=== PATIENT | male | born 1940 | race Caucasian/White ===

== ENCOUNTER 2018-01-21 16:06 | Inpatient (IN) | payer OTHER ==
[2018-01-21] MEDS ORDERED: ONDANSETRON DISINTEGRATING 4 MG TAB PO PRN (17:24)
[2018-01-21] MEDS ORDERED: ONDANSETRON 4 MG/2 ML VIAL IVP PRN (17:24)
[2018-01-21] MEDS ORDERED: PROMETHAZINE HCL 25 MG/ML INJ IVP PRN (17:24)
[2018-01-21] MEDS ORDERED: HYDROmorphONE/DILAUDID 1 MG/ML INJ IVP PRN (17:24)
[2018-01-21] MEDS ORDERED: oxyCODONE IR 5 MG TAB PO PRN (17:24)
[2018-01-21] MEDS: HYDROCODONE/APAP 5/325 TAB PO PRN (18:47)
[2018-01-21 20:57] LABS: PLATELET COUNT 142 10^3/uL (150-400)
[2018-01-21] MEDS ORDERED: NS 500 ML IV ONE (21:30)
[2018-01-21] MEDS: NS 1,000 ML IV SCH (21:56)
[2018-01-21] MEDS ORDERED: NITROGLYCERIN 0.4 MG BTL SL PRN (22:48)
--- NOTE | 2018-01-21 23:04 | PDGENHP ---
History and Physical - Chief Complaint generalized weakness - History of Present Illness Patient is a 77 yo M patient of Dr. Romeo for recently diagnosed rectal adenocarcinoma. Patient sent over as a direct admit for concerns of possible failure to thrive with increased weakness, difficulty eating and increased confusion. Patient has also been incontinent of stool and oncology has been attempting to obtain an MRI for further evaluation however he has been unable to obtain due to concern over a possible metal stent in his leg. The majority of this history is obtained from and daughter present at bedside as patient though awake and alert is somnolent and not very interactive. Per family , 2 days ago he was able to walk with a walker and was interacting much more normally. He has been complaining of pain in his tailbone but really no other new complaints. He has not had fever or chills, He has not had any changes in his urination other than the urine has appeared dark. He has had a chronic indwelling hernandez catheter since September due to urinary retention, they have been followed up by urology. He has had the catheter changed as scheduled, most recently one week ago. He has been so weak he has had trouble getting out of bed recently. He has recently moved to [place] and has had the majority of his care in [place], he has a PCP in [place] and has had the majority of his care through [facility] in [place]. History Information - Allergies/Home Medication List Allergies/Adverse Reactions: Unable to Assess Allergy (Unverified 01/21/18 17:24) Home Medications: ARIPiprazole [Abilify 5 mg (*)] 2.5 mg PO HS 01/21/18 [Last Taken 01/21/18 17:00 ] Atorvastatin Calcium [Lipitor 40 mg (*)] 40 mg PO HS 01/21/18 [Last Taken 17:00] Clopidogrel Bisulfate [Plavix (*)] 75 mg PO DAILY 01/21/18 [Last Taken 01/21/18] Divalproex ER [Depakote ER 500 MG (*)] 1,500 mg PO HS 01/21/18 [Last Taken 01/21 17:00] Hydrocodone/Acetaminophen [[place] 5/325 (*)] 1 tab PO Q4H PRN 01/21/18 [Last Taken 01/20/18] Levothyroxine [Synthroid 75 mcg (*)] 75 mcg PO DAILY06 01/21/18 [Last Taken 07/06] Nitroglycerin [Nitrostat 0.4 mg (*)] 0.4 mg SL Q5M PRN 01/21/18 [Last Taken Unknown] I have personally reviewed and updated: family history, medical history, social history, surgical history - Past Medical History coronary artery disease (stents x 2), cancer (rectal adenocarincoma), CVA, psychiatric history (severe depression in the past--had a 70 day stay in [facility] [place]) Additional medical history: PVD with stent - Surgical History Reports: coronary stent Additional surgical history: stent for pvd in leg - Family History Positive for: non-pertinent - Social History Smoking Status: Former smoker Alcohol Use: Rarely Drug Use: None Additional social history: , accompanied by and daughter Review of Systems Review of Systems: ROS: 10pt was reviewed & negative except for what was stated in HPI & below Physical Exam Physical Exam: Temp Pulse Resp BP Pulse Ox 36.4 C 49 L 16 83/51 L 93 01/21/18 20:55 01/21/18 20:55 01/21/18 20:55 01/21/18 21:48 01/21/18 20:55 Constitutional: appears nourished, not in pain, chronically ill appearing Eyes: PERRL, anicteric sclera Ears, Nose, Mouth, Throat: moist mucous membranes, hearing normal Cardiovascular: regular rate and rhythym, no murmur, rub, or gallop, edema Respiratory: no respiratory distress, no rales or rhonchi Gastrointestinal: normoactive bowel sounds, soft, non-tender abdomen Genitourinary: no bladder tenderness Skin: warm, normal color Musculoskeletal: full muscle strength Neurologic: AAOx3, other (somnolent, generalized weakness) Psychiatric: interacting appropriately Lab Data & Imaging Review 01/21/18 18:30 01/21/18 18:30 WBC 8.40 10^3/uL (3.80-9.50) 01/21/18 18:30 RBC 4.20 10^6/uL (4.40-6.38) L 01/21/18 18:30 Hgb 12.9 g/dL (13.7-17.5) L 01/21/18 18:30 Hct 39.0 % (40.0-51.0) L 01/21/18 18:30 MCV 92.9 fL (81.5-99.8) 01/21/18 18:30 MCH 30.7 pg (27.9-34.1) 01/21/18 18:30 MCHC 33.1 g/dL (32.4-36.7) 01/21/18 18:30 RDW 16.0 % (11.5-15.2) H 01/21/18 18:30 Plt Count 142 10^3/uL (150-400) L 01/21/18 18:30 MPV 10.2 fL (8.7-11.7) 01/21/18 18:30 Neut % (Auto) 64.7 % (39.3-74.2) 01/21/18 18:30 Lymph % (Auto) 22.0 % (15.0-45.0) 01/21/18 18:30 Baldwin % (Auto) 11.8 % (4.5-13.0) 01/21/18 18:30 Eos % (Auto) 0.8 % (0.6-7.6) 01/21/18 18:30 Baso % (Auto) 0.5 % (0.3-1.7) 01/21/18 18:30 Nucleat RBC Rel Count 0.0 % (0.0-0.2) 01/21/18 18:30 Absolute Neuts (auto) 5.43 10^3/uL (1.70-6.50) 01/21/18 18:30 Absolute Lymphs (auto) 1.85 10^3/uL (1.00-3.00) 01/21/18 18:30 Absolute Monos (auto) 0.99 10^3/uL (0.30-0.80) H 01/21/18 18:30 Absolute Eos (auto) 0.07 10^3/uL (0.03-0.40) 01/21/18 18:30 Absolute Basos (auto) 0.04 10^3/uL (0.02-0.10) 01/21/18 18:30 Absolute Nucleated RBC 0.00 10^3/uL (0-0.01) 01/21/18 18:30 Immature Gran % 0.2 % (0.0-1.1) 01/21/18 18:30 Immature Gran # 0.02 10^3/uL (0.00-0.10) 01/21/18 18:30 Sodium 135 mEq/L (135-145) 01/21/18 18:30 Potassium 4.5 mEq/L (3.3-5.0) 01/21/18 18:30 Chloride 99 mEq/L (97-110) 01/21/18 18:30 Carbon Dioxide 28 mEq/l (22-31) 01/21/18 18:30 Anion Gap 8 mEq/L (8-16) 01/21/18 18:30 BUN 20 mg/dL (7-23) 01/21/18 18:30 Creatinine 0.8 mg/dL (0.7-1.3) 01/21/18 18:30 Estimated GFR > 60 01/21/18 18:30 Glucose 117 mg/dL (70-100) H 01/21/18 18:30 Calcium 9.3 mg/dL (8.5-10.4) 01/21/18 18:30 Phosphorus 4.2 mg/dL (2.5-4.5) 01/21/18 18:30 Magnesium 1.9 mg/dL (1.6-2.3) 01/21/18 18:30 Total Bilirubin 0.6 mg/dL (0.1-1.4) 01/21/18 18:30 AST 39 IU/L (17-59) 01/21/18 18:30 ALT 22 IU/L (21-72) 01/21/18 18:30 Alkaline Phosphatase 76 IU/L (38-126) 01/21/18 18:30 Troponin I < 0.012 ng/mL (0.000-0.034) 01/21/18 18:30 Total Protein 6.3 g/dL (6.3-8.2) 01/21/18 18:30 Albumin 3.2 g/dL (3.5-5.0) L 01/21/18 18:30 TSH 0.103 uIU/mL (0.465-4.680) L 01/21/18 18:30 Visualized and Interpreted Chest x-ray results: Yes Chest X-Ray results: no infiltrate Assessment & Plan Assessment: Rectal adenocarcinoma (Acute) 77 yo M with hx of CAD, CVA and depression as well as recently diagnosed rectal adenocarcinoma admitted with increased weakness/somnolence and hypotension # hypotension: persistent and not very fluid responsive, trop negative, ecg ordered and pending, does have associated bradycardia. Nothing clearly suggestive of infectious process but given underlying malignancy could be manifesting differently due to immune suppression. Will check procalcitonin, UA and lactate. Will get cortisol level in am. Adrenal insufficiency a consideration and will do cortisol stim test in am. Will give a one time dose of dexamthasone in case adrenal crisis contributing to presentation. # weakness/somnolence: as above, in the setting of new dx of rectal adenocarcinoma however more rapid decline concerning for a secondary etiology for this. W/u for occult infection, will w/u possible cardiac etiology as well as adrenal insufficiency. PT/OT to be involved. # bradycardia: ecg pending, will monitor on tele, in ER appeared to be sinus david on personal review of monitor # rectal adenocarcinoma: sent in for direct admission by oncology, they will eval in the am and give further recommendations regarding treatment and w/u # hx of CAD: s/p stents x 2, no chest pain but given multiple vague sxs will w/ u for possible anginal equivalent with trops, echo in am, tele monitoring # hx of CVA: without any current focal neurologic deficits appreciated # acute encephalopathy: patient noted to be somnolent and answering questions slowly and largely with only yes/no answers, is answering overall appropriately when pressed, per family this has been present over last couple of days as well , does seem more c/w toxic metabolic encephalopathy rather than an acute neurologic issue currently # hx of depression: apparently severe in the past requiring prolonged hospitalization, will monitor, difficult to assess currently # IP status, will require > 48 hours stay for eval/mgmt of above # DNR--reviewed with and daughter Patient new to my care. Old records reviewed and summarized as above. Care plan reviewed with oncology. Further hx obtained from /daughter at bedside. Records from prior hospitalizations and PCP office requested.
[2018-01-21] MEDS ORDERED: NS 1,000 ML IV ONE (23:05)
[2018-01-21] MEDS ORDERED: DEXAMETHASONE 4 MG/ML VIAL IVP ONE (23:27)
[2018-01-22] MEDS: NS 1,000 ML IV SCH ×2 (00:41→08:37)
[2018-01-22] MEDS: LEVOTHYROXINE 75 MCG TAB PO SCH (05:13)
[2018-01-22] MEDS ORDERED: COSYNTROPIN 0.25 MG/2 ML SYRINGE IVP ONE (06:00)
--- NOTE | 2018-01-22 09:35 | PDMN ---
Medical Necessity Medical necessity: Pt meets inpt criteria per MD order and MCG M-510, Supraventricular Arrhythmias. 77 y/o w/recent diagnosis of rectal adenocarcinoma admitted w/increased weakness, somnolence/confusion, persistent hypotension, and bradycardia w/most recent HR 42. Anticipate>2MN for further eval/management including cortisol stim test in AM, workup for infection, cardiology etiology as well as adrenal insuff, blood cultures pending, oncology consult.
[2018-01-22] MEDS: CLOPIDOGREL BISULFATE 75 MG TAB PO SCH (11:39)
--- NOTE | 2018-01-22 11:56 | ECHO ---
[email or web address] [address] [address] Main: [phone] Fax: Transthoracic Echocardiogram Name: RAFAT OLIVAREZ MR#: [id number] Study Date: 01/22/2018 Study Time: 09:07 AM Date of : 1940 Age: 77 year(s) Height: 165.1 cm (65 in.) Weight: 76.2 kg (168 lb.) BSA: 1.84 m2 Gender: Male Examination: Echo Indication: Hypotension, Rectal CA, Weakness Image Quality: Contrast: Requested by: Harika Lu BP: 121 mmHg/70 mmHg Heart Rate: Rhythm: Normal sinus rhythm with ectopy Indication: Hypotension, Rectal CA, Weakness 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 No LV hypertrophy. Normal global systolic LV function. EF is 77 %. Grade 2 diastolic dysfunction (pseudonormalized LV filling pattern). The left atrium is mildly dilated. Mild mitral valve leaflet calcification is present. Trivial mitral valve regurgitation. Mild aortic cusp calcification is noted. Measurements: Chambers Valvular Assessment AV/MV Valvular Assessment TV/PV Normal Normal Normal Name Value Range Name Value Range Name Value Range Ao Ladi (MM): 3.2 cm (2.2 cm-3.7 AV Vmax: 1.41 m/s (1 m/s-1.7 PV Vmax: 0.79 m/s (0.6 m/s-0.9 cm) m/s) m/s) IVSd (2D): 0.8 cm (0.6 cm-1.1 AV maxP mmHg ( - ) PV PGmax: 2 mmHg ( - ) cm) AV meanP mmHg ( - ) LVDd (2D): 4.5 cm (4.2 cm-5.9 LVOT Vmax: 1.16 m/s (0.7 m/s-1.1 cm) m/s) LVDs (2D): 2.5 cm (2.1 cm-4 RUEL (Vmax): 2.6 cm2 ( - ) cm) RUEL (VTI): 2.9 cm ( - ) LVPWd (2D): 0.9 cm (0.6 cm-1 MV E Vmax: 1.10 m/s ( - ) cm) MV A Vmax: 0.83 m/s ( - ) LVOTd 2.0 cm 2.0 cm mm MV E/A: 1.33 ( - ) LVEF (2D): 77 (>=54 %) MV maxP mmHg ( - ) MV meanP mmHg ( - ) MVA (Vmax): 2.9 m/s ( - ) Continued Measurements: Patient: RAFAT OLIVAREZ Study Date: 01/22/2018 Page 1 of 2 09:07 AM Chambers Valvular Assessment AV/MV Name Value Name Value LADs Lon.6 cm MV E/E' Septal: 21.30 LA Area: 26.1 cm2 MV E/E' Lateral: 18.80 LA Volume: 70 ml MV VTI: 38.20 cm LA Volume Index: 38.0 ml/m2 TAPSE: 2.6 cm Findings: Left Ventricle: Normal size left ventricle. No LV hypertrophy. Normal global systolic LV function. EF is 77 %. No regional wall motion abnormality. Grade 2 diastolic dysfunction (pseudonormalized LV filling pattern). Right Ventricle: Normal size right ventricle. Normal RV function. Left Atrium: The left atrium is mildly dilated. Right Atrium: The right atrium is normal in size. Mitral Valve: Mild mitral valve leaflet calcification is present. Trivial mitral valve regurgitation. No mitral stenosis is present. Aortic Valve: Mild aortic cusp calcification is noted. There is no significant aortic valve regurgitation. No aortic valve stenosis is present. Tricuspid Valve: The tricuspid valve is normal in appearance and function. There is no tricuspid valve regurgitation. Pulmonic Valve: The pulmonic valve is normal in appearance and function. Aorta: The aorta is normal. Pericardium: No pericardial effusion. Exam Comments: The heart rate during the exam ranged from 38 bpm and increased into the mid 60 bpm range.. (No Signature Object) Patient: RAFAT OLIVAREZ Study Date: 01/22/2018 Page 2 of 2 09:07 AM [id number]
[2018-01-22] MEDS: HYDROCODONE/APAP 5/325 TAB PO PRN (12:54)
[2018-01-22 14:30] LABS: CREATINE KINASE 313 IU/L (0-224)
--- NOTE | 2018-01-22 16:02 | CPEKG ---
Test Reason : OPEN Blood Pressure : / mmHG Vent. Rate : 049 BPM Atrial Rate : 047 BPM P-R Int : 140 ms QRS Dur : 102 ms QT Int : 469 ms P-R-T Axes : 040 -18 -05 degrees QTc Int : 424 ms Sinus bradycardia Borderline left axis deviation Borderline T abnormalities, inferior leads Confirmed by Jie Conteh ([id number]) on 01/22/2018 4:02:20 PM Referred By: Confirmed By:Jie Conteh
--- NOTE | 2018-01-22 16:03 | ASMTCMCOM ---
CM Note CM Note Notes: Chart reviewed. Met with patient and his . He and his share with me that his status has been declining at home despite working with PT and OT through [facility]. His is tearful and it is my sense that being is caregiver has overwhelming caregiver burden for her. I asked is anyone has discussed palliative care, It was mentioned once but not clearly explored as his cancer diagnosis is still in process of being staged. He needs an MRI but due to him having a stent in his leg at a facility in [place], MRI is delayed until clarification regarding the type of stent can be made. He is also extremely bradycardic which may be an explanation for his severe deciine in physical status and inability to walk at home. Cardiology seeing this PM.CM to follow for needs. Plan: TBD Date Signed: 01/22/2018 04:03 PM Electronically Signed By:Seema Fatima RN
--- NOTE | 2018-01-22 16:11 | CPEKG ---
Test Reason : OPEN Blood Pressure : / mmHG Vent. Rate : 038 BPM Atrial Rate : 038 BPM P-R Int : 141 ms QRS Dur : 102 ms QT Int : 495 ms P-R-T Axes : 034 -08 -13 degrees QTc Int : 394 ms Sinus bradycardia Low voltage, extremity and precordial leads Confirmed by Jie Conteh ([id number]) on 01/22/2018 4:10:55 PM Referred By: Confirmed By:Jie Conteh
[2018-01-22] MEDS ORDERED: NS 500 ML IV ONE (16:46)
--- NOTE | 2018-01-22 17:33 | HOSPPROG ---
Hospitalist Progress Note Assessment/Plan: 77yo M recently diagnosed with rectal adenocarcinoma and h/o CAD presented from oncology clinic due to concerns for increasing weakness and confusion. Per family, he has had subacute physical and mental decline over period of months with acute change in last few days. #Acute encephalopathy with myoclonus: Most likely metabolic in nature. Alternatively, this could be catatonic depression but unlikely would have neurologic manifestations. Despite negative procalcitonin, will treat for UTI as have no other clear source. - Start IV ceftriaxone, follow urine culture - CT head - Depakote and ammonia level wnl - Attempted to call his psychiatrist to get more info on his psychiatric disease #Sinus bradycardia: No e/o AV block or coronary ischemia, not on briana blocking agents. Doubt this is main construction driver of his lethargic state. - Cardiology consulted - Move to PCU for closer monitoring overnight #Hypotension: Fluid responsive. Not correlated with encephalopathy and all other signs indicate he is perfusing ok. Does not have septic physiology. - Dustin stim normal - IVF prn #Rectal adenocarcinoma: - Oncology consulted. Has not had staging imaging done yet, defer to onc for this. #Depression: No recent med changes. - Continue depakote, abilify. Doses confirmed with patient/family. #Hypothyroidism - TSH very low but T4 and T3 wnl. Unlikely to be precipitating AMS. - Continue home thyroid replacement #H/o CAD: S/p PCI about a year ago. - Trops/ecg neg for ischemia, TTE ok - Continue clopidogrel, not on statin #H/o PAD: S/p stent in leg - Meds as above Diet: regular Code: DNR VTE ppx: LMWH Dispo: Remain inpatient for management of AMS with IV antibiotics. Unsafe for discharge to home. Subjective: Sleepy. Denies pain. No fevers. Got up and walked with therapy. Denies feeling depressed or anxious. Objective: Vital Signs Temp Pulse Resp BP Pulse Ox 36.4 C 38 L 16 88/45 L 94 01/22/18 15:34 01/22/18 15:34 01/22/18 15:34 01/22/18 15:34 01/22/18 15:34 Laboratory Results 01/21/18 18:30 01/21/18 18:30 01/21/18 01/22/18 01/23/18 05:59 05:59 05:59 Intake Total 350 1145 Output Total 950 550 Balance -600 595 - Physical Exam Constitutional: no apparent distress, appears nourished, not in pain Eyes: PERRL, anicteric sclera, EOMI Ears, Nose, Mouth, Throat: moist mucous membranes, hearing normal, ears appear normal, no oral mucosal ulcers Cardiovascular: pulses symmetric bilaterally, bradycardia, No systolic murmur, No JVD, No edema Respiratory: no respiratory distress, no rales or rhonchi, clear to auscultation Gastrointestinal: normoactive bowel sounds, soft, non-tender abdomen, no palpable masses Genitourinary: hernandez in urethra, other (normal rectal tone (performed by oncologist)) Skin: no rashes or abrasions, no fluctuance, no induration Musculoskeletal: full muscle strength, no muscle tenderness, normal joint ROM Neurologic: asterixes, CN II-XII Intact, other (alert and oriented, able to spell WORLD backwards, + myoclonus in upper and lower extremities, 5/5 strength in all muscle groups, sensation to light touch intact) Psychiatric: flat affect ICD10 Worksheet Patient Problems: Problems Problem Status Onset Rectal adenocarcinoma Acute
[2018-01-22] MEDS ORDERED: ATROPINE SULFATE 1 MG/10 ML SYR IVP PRN (19:33)
--- NOTE | 2018-01-22 19:55 | PDCONSULT ---
Corrosion Control Engineer Note: Patient is a 77-year-old male with a recent diagnosis of rectal adenocarcinoma admitted for generalized weakness and failure to thrive. Patient reports a 2-3-month history of generalized weakness and feelings of depression. He reports over the last several weeks or so he spends most of his time in bed or in a chair. He can walk but requires a walker which he started using recently. In addition he reports roughly 50 pound weight loss within the last year. He denies melena or hematochezia he feels each time that he has a bowel movement he has 2-3 bowel movements per day. He reports being incontinent of urine for 4-5 weeks however has a Goodwin catheter in place. Patient was seen by Dr. Tavarez on 01/06/2018. That note reports that patient had significant feelings of depression after 2 cardiac stents were placed roughly 1 year ago. Roughly elliptical. Blood. In October having difficulty urinating and required a catheter placed. Apparently was evidence of urinary stricture and at that time. Patient eventually started to get urology forward a worsening bowel habits hematochezia and fecal incontinence. A colonoscopy was performed with a low-lying mass which appeared biopsy showed moderately differentiated adenocarcinoma. Patient had a CT scan of the chest abdomen on 01/14/2018 which demonstrated an incompletely imaged complex cystic and fat-containing right retroperitoneal mass. MRI was not pursued initially due to concerns that this patient has a iliac stent. Review of systems: A complete 12 point review of systems was obtained and found to be negative unless indicated in the history of the present illness Past medical history: Coronary artery disease Severe depression with documented stay at inpatient psychiatry Past surgical history: Right total knee arthroplasty Left iliac vein stenting Social history: Patient is a [id number]-fzob smoking history he quit 40 years ago. Patient does report one drinks per day. 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 Family history: Patient reports he has a daughter who has Crohn's disease Medications and allergies reviewed in EMR Physical Examination General: no acute distress, non toxic appearing HEENT: PERRL, no scleral icterus or conjunctival pallor is appreciated Neck: supple without adenopathy Cardiovascular: bradycardic rate, normal rhythm without rubs thrills or gallops Chest: Clear to auscultation and percussion Abdomen: soft nontender, non distended without hepatosplenomegaly Rectal: normal rectal tone with some blood on the glove Extremities: warm and well perfused with 2+ radial and dorsalis pedis pulses, some scarring on the left leg Neurologic: CN II-XII intact, 5/5 dorsiflexion, plantarflexion lower extremities , able to lift legs off the bed, downgoing toes, able to walk with walker Labs reviewed Assessment and plan: Patient is a 77 year old male with recent diagnosis of rectal carcinoma admitted for generalized weakness and failure to thrive. #Generalized weakness Appears related to deconditioning likely due to severe depression. He has no focal weakness, no saddle anesthesia and normal rectal exam in regards to tone. -PT/OT evaluation -psychiatry consult #Rectal adenocarcinoma He has no evidence of distant metastatic disease based on CT chest and abdomen done 01/14/18. Has not had regional staging. Would see about MRI with his iliac stent and if cannot get an MRI would pursue endoscopic ultrasound. Raymundo Loyd
[2018-01-22] MEDS: DIVALPROEX ER 500 MG TAB PO SCH (20:43)
[2018-01-22] MEDS: ATORVASTATIN CALCIUM 40 MG TAB PO SCH (20:46)
[2018-01-22] MEDS: ARIPiprazole 5 MG TAB PO SCH (21:43)
--- NOTE | 2018-01-22 23:21 | GCON ---
REASON FOR CONSULTATION: We were asked by the hospitalist to comment on his bradycardia. CODE STATUS: His code designation is DNR. HISTORY OF PRESENT ILLNESS: The patient is a 77-year-old male with new diagnosis of rectal endo carcinoma. He has a history of coronary artery disease , having had a PCI 1 year ago. He was admitted from the oncology clinic on 06/2017, where he had presented to meet with the oncologist regarding his newly diagnosed rectal cancer. He has had increasing weakness and confusion, and there has been a noted decline in his mentation over the past few months. He has known psychiatric disease and is followed closely by his psychiatrist. He has depression and has been on Depakote and Abilify for treatment. Cardiology has been asked to weigh in on his sinus bradycardia. His EKGs have shown no evidence of an AV block or cardiac ischemia. He has not been on any type of briana-blocking agents. His heart rates do get down to 36-49 and do go up appropriately with ambulation. His blood pressure has been ranging 100/58 to 121/70. On admission, it was as low as 83/51. He does have history of coronary artery disease with PCI placed 1 year ago. He has continued on clopidogrel troches. An EKG on admission was negative for ischemia. He additionally has a history of peripheral vascular disease and years ago had a stent placed in the leg. He did have a positive UA and is on IV antibiotics. At time of my visit, he was willing to answer questions. However, becomes very somnolent and weak. There are plans by the hospitalist to get a head CT to evaluate further and rule out metastasis. His is at bedside and has participated in this interview. He does not appear to be in distress. spa supervisor continues to show heart rates between 36 and 49. The plan is to transfer him to the PCU area where he can be monitored closely. REVIEW OF SYSTEM: 10-point review of systems was negative with the exception of that mentioned in the HPI. MEDICATION: Please see complete list of medications on admission. MEDICAL HISTORY: Coronary artery disease with stent placement, CVA, psychiatric history with severe depression requiring a hospital stay at the [facility] for 2 months. He does have peripheral vascular disease and has had a stent placed in his leg. SOCIAL HISTORY: He is a former smoker. Alcohol use occasional. No illicit drug use. He is . PHYSICAL EXAMINATION: CONSTITUTIONAL: He is in no distress. He does appear chronically ill. EYES: Sclerae are clear. ENT: Hearing normal. Mucous membranes are moist. CARDIOVASCULAR: Regular rate and rhythm. No murmur, rubs , or gallops. RESPIRATORY: He is in no respiratory distress. No wheezes, rales, or rhonchi. GASTROINTESTINAL: Bowel sounds are normal. ABDOMEN: Soft , nontender. SKIN: Warm and dry. Pale appearing. NEUROLOGICAL: Alert and oriented x3. He is somnolent. PSYCHIATRIC: He does interact appropriately. INVESTIGATIONAL TESTIN. Chest x-ray on 01/21/2018: No pneumonia or pleural effusion. No evidence of CHF. Bilateral calcified granuloma are noted. Overall impression no pneumonia. 2. 01/21/2018 admit EKG shows sinus bradycardia. No ischemic changes noted. 3. EKG on 01/22/2018 shows a ventricular rate of 38 beats per minute, sinus bradycardia. 4. 01/22/2018 Echocardiogram: No LV hypertrophy. Normal systolic left ventricular function. Ejection fraction 77%. Grade 2 diastolic dysfunction. Left atrium is mildly dilated. Mild mitral valve leaflet calcification is present. . Trivial mitral valve regurgitation. Mild aortic calcification is noted. No aortic valve stenosis. No aortic valve regurgitation. Tricuspid valve appears normal with no regurgitation. Pulmonic valve is normal in appearance and function. Aorta is normal. No pericardial effusion. Exam comment: The heart rate during the exam ranged from 38 beats per minute and increased into the mid 60 beats per minute range. IMPRESSION AND PLAN: This case was reviewed at length with Dr. Randolph and Dr. Jacinto Jiang. His heart rate is responding appropriately to activity. However , his bradycardia has been a concern and does warrant close monitoring. Should he may become intolerant to the lower heart rates, consideration for permanent pacemaker would be appropriate. Other considerations for cause of bradycardia may be related to metastasis of the cancer to the head. Albumin level is low at 3.2. Should it continue to decline, consideration for albumin replacement may be appropriate. Should his heart rate continue to decline, consideration could be for placement of a peripherally inserted central catheter line and start a dopamine drip to increase his heart rate. A consideration for possible medication interaction, specifically Depakote and Abilify. In visiting further with Dr. Sultana, his admitting hospitalist, they are looking at all aspects and possibilities. They have looked at possible adrenal insufficiency and do plan for a head CT. Dr. Sultana is also attempting to get in touch with his psychiatric physician. CURRENT PLAN: 1. Continue with IV fluid replacement. Consider albumin replacement as needed. 2. Should he become unstable with further reduction in heart rate, consideration for permanent pacemaker. We will continue to follow along. Thank you very much for asking us to be part of this patient's care. /[id number]/MODL MTDD
[2018-01-23] MEDS: NS 1,000 ML IV SCH ×2 (04:39→13:11)
[2018-01-23] MEDS: LEVOTHYROXINE 75 MCG TAB PO SCH (04:45)
[2018-01-23] MEDS: ENOXAPARIN 40 MG/0.4 ML SYR SC SCH (08:31)
[2018-01-23] MEDS: CLOPIDOGREL BISULFATE 75 MG TAB PO SCH (08:32)
[2018-01-23] MEDS: ACETAMINOPHEN 325 MG TAB PO PRN ×2 (08:32→18:15)
--- NOTE | 2018-01-23 10:49 | PDCARPN ---
Cardiology Progress Note Chief Complaint: Bradycardia Assessment/Plan: Assessment: Bradycardia--- Today HR 60-70. He did respond well to fluids. Yesterday HR 30 to 50's. Likely due to dehydration. Much more alert today. Rectal Carcinoma-- newly diagnosed. Had seen Oncology yesterday but due to weakness, unsteadiness, and fatigue he was sent to the hospital. Plan: Continue to monitor on Telemetry today. 01/23/18 10:45 Subjective: I feel much better today. It feels good to sit in the chair. Reviewed/Discussed With: hospitalist, multidisciplinary team Time Spent with Patient: greater than 25 minutes Time Spent with Patient: Greater than 25 minutes spent on this patients care, greater than 50% of time spent counseling, educating, and coordinating care regarding the above mentioned plan. Objective: Vital Signs (8 Hrs) Temp Pulse Resp BP Pulse Ox 01/23/18 07:57 36.4 C 40 L 16 114/61 95 01/23/18 03:58 36.6 C 43 L 12 97/51 L 95 Intake/Output (24 Hrs) 01/22/18 01/23/18 01/24/18 05:59 05:59 05:59 Intake Total 350 3295 Output Total 950 1050 Balance -600 2245 Intake: Oral (ml) 350 650 IV Infused (ml) 2645 Ns 1,000 ml @ 125 mls/hr 2645 IV CONT SYDNEE Rx#: [id number] Output: Urine (ml) 950 1050 Catheter 950 1050 Other: Weight 76.204 kg Intake Quantity Yes Sufficient Result Diagrams: 01/23/18 03:28 01/23/18 03:28 Cardiac Labs: Cardiac Lab Results (72 Hrs) 01/22/18 01/21/18 06:20 18:30 CK-MB (CK-2) Fraction 1.29 Troponin I < 0.012 Telemetry: Sinus Rhythm rates 60's to 70's - Physical Exam Constitutional: no apparent distress Cardiovascular: regular rate and rhythm, no murmurs, no rubs, no gallops Peripheral Pulses: 0: dorsalis-pedis (R) (trace), dorsalis-pedis (L) (trace) Respiratory: clear to auscultate bilat, no crackles, no wheezes Skin: warm Neurologic: AAOx3 Psychiatric: cooperative, interactive ICD10 Worksheet Patient Problems: Problems Problem Status Onset Rectal adenocarcinoma Acute
--- NOTE | 2018-01-23 14:55 | HOSPPROG ---
Hospitalist Progress Note Assessment/Plan: 77yo M recently diagnosed with rectal adenocarcinoma, depression presented from oncology clinic due to concerns for increasing weakness and confusion. Per family, he has had subacute physical and mental decline over period of months with acute change in last few days. #Acute encephalopathy with myoclonus: Much improved with antibiotics. #UTI: LFGNR in cultures - Continue CTX, narrow as susceptibilities return - Exchange mary #Depression: Discussed with his primary psychiatrist, Hamzah Guajardo. - Consulted psych, Venessa Galvan to see - Continue pawanteolivialinadja #Sinus bradycardia: Stable, chronotropically competent. - Cards consulted. Patient not interested in pacemaker placement but if worsens may consider - Tele #Deconditioning: - PT/OT recommending SNF, family agreeable #Rectal adenocarcinoma: Oupt CT abd/pelvis without mets. Needs MRI for formal staging - family very anxious over this. - Trying to track down iliac stent details to see if can get MRI. If stent not compatible, will need endoscopic ultrasound and GI consult but not necessarily as inpatient #Hypotension: Resolved with IVF. Dustin stim normal. #Hypothyroidism: TSH low but T4/T3 wnl. Continue replacement #H/o CAD: s/p stent last years. On plavix, no statin #H/o PAD: s/p iliac stent. Diet: regular Code: DNR VTE ppx: LMWH Dispo: Remain inpatient for IV antibiotics. Plan to go to SNF. Subjective: Patient sitting up in chair eating. Much more conversant today. Had a few episodes of fecal incontinence and a bit of pian this morning. Currently pain free. Feeling better Objective: Vital Signs Temp Pulse Resp BP Pulse Ox 36.7 C 45 L 16 97/42 L 96 01/23/18 11:47 01/23/18 11:47 01/23/18 11:47 01/23/18 11:47 01/23/18 11:47 Laboratory Results 01/23/18 03:28 01/23/18 03:28 01/22/18 01/23/18 01/24/18 05:59 05:59 05:59 Intake Total 350 3295 Output Total 950 1050 Balance -600 2245 - Physical Exam Constitutional: no apparent distress, appears nourished, not in pain Eyes: PERRL, anicteric sclera, EOMI Ears, Nose, Mouth, Throat: moist mucous membranes Cardiovascular: no murmur, rub, or gallop, bradycardia Respiratory: no respiratory distress, no rales or rhonchi, clear to auscultation Gastrointestinal: normoactive bowel sounds, soft, non-tender abdomen, no palpable masses Genitourinary: hernandez in urethra Skin: no rashes or abrasions, no fluctuance, no induration Neurologic: other (alert, intermittently disoriented) Psychiatric: encephalopathic ICD10 Worksheet Patient Problems: Problems Problem Status Onset Rectal adenocarcinoma Acute
--- NOTE | 2018-01-23 15:46 | SOAPPROG ---
SOAP Progress Note Assessment/Plan: Assessment and plan: Patient is a 77 year old male with recent diagnosis of rectal carcinoma admitted for generalized weakness and failure to thrive. #Generalized weakness Appears related to deconditioning likely due to severe depression. He has no focal weakness, no saddle anesthesia and normal rectal exam in regards to tone. May also be secondary to UTI, he is currently on antibiotics. -continue antibiotics -continue PT/OT -psychiatry consult #Rectal adenocarcinoma He has no evidence of distant metastatic disease based on CT chest and abdomen done 01/14/18. Has not had regional staging. Would see about MRI with his iliac stent and if cannot get an MRI would pursue endoscopic ultrasound. Raymundo Loyd 01/23/18 15:47 Subjective: Patient reports feeling fine today. No fevers chills or sweats. He was unable to make it to the bathroom and had BM in the bed. No numbness or tingling. Objective: Vital Signs Temp Pulse Resp BP Pulse Ox 36.7 C 45 L 16 97/42 L 96 01/23/18 11:47 01/23/18 11:47 01/23/18 11:47 01/23/18 11:47 01/23/18 11:47 Laboratory Results 01/23/18 03:28 01/23/18 03:28 01/22/18 01/23/18 01/24/18 05:59 05:59 05:59 Intake Total 350 3295 Output Total 950 1050 Balance -600 2245 Physical Examination General: no acute distress, non toxic appearing HEENT: PERRL, no scleral icterus or conjunctival pallor is appreciated Neck: supple without adenopathy Cardiovascular: bradycardic rate, normal rhythm without rubs thrills or gallops Chest: Clear to auscultation and percussion Abdomen: soft nontender, non distended without hepatosplenomegaly Rectal: normal rectal tone with some blood on the glove Extremities: warm and well perfused with 2+ radial and dorsalis pedis pulses, some scarring on the left leg Neurologic: alert and oriented ICD10 Worksheet Patient Problems: Problems Problem Status Onset Rectal adenocarcinoma Acute
--- NOTE | 2018-01-23 16:12 | ASMTCMCOM ---
CM Note CM Note Notes: Met with patient and his . They were actually having a meet and greet with Ana Maria from [facility] - apparently, patient's home health agency, [facility], had contacted [facility] with a referral for palliative care. I concurred that this was also being recommended by [facility]. We then discussed SNF discharge; patient's is not able to meet all of his care needs at home at this time. I sent referrals to [facility] and [facility]. Patient was at [facility] this summer but felt that they did not do much other than PT. Patient will certainly need strong nursing care wherever he goes now. Current CM Discharge plan: SNF w palliative care Date Signed: 01/23/2018 04:03 PM Electronically Signed By:Dina Prabhakar RN
[2018-01-23] MEDS: ATORVASTATIN CALCIUM 40 MG TAB PO SCH (22:13)
[2018-01-23] MEDS: ARIPiprazole 5 MG TAB PO SCH (22:13)
[2018-01-23] MEDS: DIVALPROEX ER 500 MG TAB PO SCH (22:16)
[2018-01-23] MEDS: oxyCODONE IR 5 MG TAB PO PRN (22:28)
[2018-01-24] MEDS: NS 1,000 ML IV SCH (05:51)
[2018-01-24] MEDS: LEVOTHYROXINE 75 MCG TAB PO SCH (05:51)
[2018-01-24] MEDS: oxyCODONE IR 5 MG TAB PO PRN ×2 (06:36→12:09)
[2018-01-24] MEDS: ENOXAPARIN 40 MG/0.4 ML SYR SC SCH (10:52)
[2018-01-24] MEDS: CLOPIDOGREL BISULFATE 75 MG TAB PO SCH (10:52)
--- NOTE | 2018-01-24 11:42 | PDCARPN ---
Cardiology Progress Note Assessment/Plan: Assessment: Bradycardia--- Today HR 60-70. He did respond well to fluids. Yesterday HR 30 to 50's. Likely due to dehydration. Much more alert today. Rectal Carcinoma-- newly diagnosed. Had seen Oncology yesterday but due to weakness, unsteadiness, and fatigue he was sent to the hospital. Plan: Continue to monitor on Telemetry today. 01/23/18 10:45 01/24/18 11:34 Enoc is doing much better. His Heart Rates have stayed in the 60's to 70's. He has been ambulating halls with assist. He has done much better with good hydration. Should he have further cardiac problems, We are glad to see him. Will sign-off for now. Subjective: I do feel better now. Reviewed/Discussed With: multidisciplinary team Time Spent with Patient: greater than 25 minutes Time Spent with Patient: Greater than 25 minutes spent on this patients care, greater than 50% of time spent counseling, educating, and coordinating care regarding the above mentioned plan. Objective: Vital Signs (8 Hrs) Temp Pulse Resp BP Pulse Ox 01/24/18 08:00 36.7 C 54 L 16 106/57 L 93 01/24/18 03:55 36.5 C 58 L 16 126/69 H 93 Intake/Output (24 Hrs) 01/23/18 01/24/18 01/25/18 05:59 05:59 05:59 Intake Total 3295 2275 Output Total 1050 2150 Balance 2245 125 Intake: Oral (ml) 650 775 IV Infused (ml) 2645 1500 Ns 1,000 ml @ 125 mls/hr 2645 1500 IV CONT SYDNEE Rx#: [id number] Output: Urine (ml) 1050 2150 Catheter 1050 2150 Other: Intake Quantity Yes Yes Sufficient Output Comment Catheter incontinent in bed. Number of Stools Catheter 1 Result Diagrams: 01/23/18 03:28 01/23/18 03:28 Cardiac Labs: Cardiac Lab Results (72 Hrs) 01/22/18 01/21/18 06:20 18:30 CK-MB (CK-2) Fraction 1.29 Troponin I < 0.012 - Physical Exam Constitutional: no apparent distress Cardiovascular: regular rate and rhythm, no murmurs, no rubs, no gallops Peripheral Pulses: 0: dorsalis-pedis (R), dorsalis-pedis (L) Respiratory: clear to auscultate bilat, no crackles, no wheezes Skin: warm Neurologic: AAOx3 Psychiatric: cooperative, interactive ICD10 Worksheet Patient Problems: Problems Problem Status Onset Rectal adenocarcinoma Acute
[2018-01-24] MEDS ORDERED: PNEUMOC 13-VAL CONJ-DIP CRM/PF 0.5 ML SYR IM ONE (13:16)
--- NOTE | 2018-01-24 15:24 | ASMTCMCOM ---
CM Note CM Note Notes: CM sent updated PT/OT/AGRICULTURE SCIENTIST to [facility]. Met with pt's ; she is quite shaken by his recent medical problems with the most recent being his cancer diagnosis. D/C Plan: SNF Rehab Date Signed: 01/24/2018 03:23 PM Electronically Signed By:Zoila Cervantes
--- NOTE | 2018-01-24 17:13 | HOSPPROG ---
Hospitalist Progress Note Assessment/Plan: Assessment: 77 yo M p/w acute toxic encephalopathy and recently diagnosed with rectal adenocarcinoma Plan: #Acute toxic encephalopathy with myoclonus: new problem to this provider, further w/u indicated. 2/2 UTI, much improved with antibiotics, remains lethargic -d/w Dr. Galvan, she recommends eval w/ B12, ferritin/iron, depakote level -will add melatonin to improve sleep cycle #UTI: POA, park-sensitive E. coli, adjusted to keflex today, D#07/29 -exchanged hernandez, will look further to determine whether he had chronic indwelling on arrival #Depression: Dr. Galvan to d/w Dr. Guajardo re: reducing dosage of depakote to 1000 HS, cont abilify #Sinus bradycardia: HR 30-40 sinus david on tele (personally interpreted), stable w/o hypotension s/p fluid resuscitation -patient's condition TBD and unclear whether he would actually benefit from PPM , as his mental status remains suppressed despite HR 60-70 w/ normal BP on exam , so unlikely to be 2/2 bradycardia #Deconditioning: PT/OT recommending SNF, family agreeable #Rectal adenocarcinoma: Oupt CT abd/pelvis without mets. Needs MRI for formal staging - family very anxious over this. -counseled family that iliac stent info likely will be available to outpt onc office and has not been received #Hypotension: Resolved with IVF. Dustin stim normal. #Hypothyroidism: TSH low but T4/T3 wnl. Continue replacement #H/o CAD: s/p stent last years. On plavix, no statin #H/o PAD: s/p iliac stent. Diet: regular Code: DNR VTE ppx: LMWH Dispo: Remain inpatient for persistently suppressed mental status, ADD 01/25 Subjective: remains lethargic today but engages w/ therapy Objective: Vital Signs Temp Pulse Resp BP Pulse Ox 36.8 C 61 20 101/58 L 96 01/24/18 16:00 01/24/18 16:00 01/24/18 16:00 01/24/18 16:00 01/24/18 16:00 Laboratory Results 01/23/18 03:28 01/23/18 03:28 01/23/18 01/24/18 01/25/18 05:59 05:59 05:59 Intake Total 3295 2275 1050 Output Total 1050 2150 Balance 2245 125 1050 - Physical Exam Constitutional: no apparent distress, not in pain, chronically ill appearing, No uncomfortable Cardiovascular: bradycardia, No systolic murmur, No irregularly irregular, No tachycardia, No edema Respiratory: no respiratory distress, no rales or rhonchi, clear to auscultation Gastrointestinal: normoactive bowel sounds, soft, non-tender abdomen, no palpable masses Genitourinary: no bladder fullness, no bladder tenderness, other (no CVA tenderness) Neurologic: AAOx3, No facial droop Psychiatric: not anxious, thought process linear, flat affect, other ( concentration 7/7, responds to verbal stimuli, somnolent), No agitated ICD10 Worksheet Patient Problems: Problems Problem Status Onset Rectal adenocarcinoma Acute
[2018-01-24] MEDS: ARIPiprazole 5 MG TAB PO SCH (20:46)
[2018-01-24] MEDS: ATORVASTATIN CALCIUM 40 MG TAB PO SCH (20:46)
[2018-01-24] MEDS: DIVALPROEX ER 500 MG TAB PO SCH (20:46)
[2018-01-24] MEDS: MELATONIN 3 MG TAB PO SCH (20:46)
[2018-01-25 04:14] LABS: PLATELET COUNT 161 10^3/uL (150-400)
[2018-01-25] MEDS: LEVOTHYROXINE 75 MCG TAB PO SCH (06:37)
[2018-01-25] MEDS: CEPHALEXIN 500 MG CAP PO SCH ×4 (06:37→23:44)
[2018-01-25] MEDS: oxyCODONE IR 5 MG TAB PO PRN ×2 (07:39→18:32)
[2018-01-25] MEDS: ENOXAPARIN 40 MG/0.4 ML SYR SC SCH (07:40)
[2018-01-25] MEDS: CLOPIDOGREL BISULFATE 75 MG TAB PO SCH (07:40)
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
--- NOTE | 2018-01-25 13:55 | SOAPPROG ---
[facility] Progress Note Assessment/Plan: Assessment: Enoc is a 77-year-old male with a recent diagnosis of rectal adenocarcinoma who was admitted for generalized weakness and failure to thrive. 1. Rectal adenocarcinoma: We have attempted to obtain staging of the rectum with an MRI as an outpatient. Unfortunately, we have been unable to obtain information about his iliac stents which has prevented us from pursuing MRI. I looked at his records through [employer] in could not locate these records. The family states that was done in 2006. Request have been sent to [facility] and will be followed up tomorrow. We discussed today that we cannot obtain MRI , I would recommend endoscopic ultrasound. The family is concerned about his tolerance with regards to prep if endoscopy is pursued. 2. Generalized weakness: This is been ongoing issue prior to his rectal cancer diagnosis. His thought that some of this is related depression. He is also being treated for urinary tract infection. All questions were answered. He and his family voiced understanding the plan. 01/25/18 13:53 Subjective: Overall reports feeling well. Still is unsteady on his feet. Has not been ambulating much. Objective: Vital Signs Temp Pulse Resp BP Pulse Ox 36.7 C 50 L 12 112/70 92 01/25/18 11:40 01/25/18 11:40 01/25/18 11:40 01/25/18 11:40 01/25/18 11:40 Microbiology 01/21/18 23:31 Urine Culture - Final Unspecified Escherichia Coli Staphylococcus Simulans Laboratory Results 01/25/18 03:34 01/25/18 03:34 01/24/18 01/25/18 01/26/18 05:59 05:59 05:59 Intake Total 2275 2150 Output Total 2150 3200 725 Balance 125 -1050 -725 General: Appears comfortable sitting in chair. HEENT: Opiates clear extraocular movements are intact Pulmonary: Clear to auscultation bilaterally Cardiovascular: Regular rate and rhythm Abdomen: Soft nontender nondistended bowel sounds are present : Goodwin catheter is in place Extremities: Trace bilateral lower extremity edema Psych: Flat affect. Answers questions appropriately. ICD10 Worksheet Patient Problems: Problems Problem Status Onset Rectal adenocarcinoma Acute
--- NOTE | 2018-01-25 17:43 | HOSPPROG ---
Hospitalist Progress Note Assessment/Plan: Assessment: 77 yo M p/w acute toxic encephalopathy 2/2 UTI and recently diagnosed with rectal adenocarcinoma. Mental status has been slow to improve, and he is very deconditioned, so plan for SNF/rehab PRIOR to chemo/XRT decisions as outpatient with Dr. Romeo. Psych has been seeing him for depression, in case this has been impacting overall level of functioning. Plan: #Acute toxic encephalopathy with myoclonus: 2/2 UTI, mildly improved with antibiotics, remains lethargic -cont melatonin to improve sleep cycle #CAUTI: POA, park-sensitive E. coli, adjusted to keflex today, D#08/28 -exchanged hernandez, prior hernandez had been changed 1 week PCT #Depression: Dr. Galvan d/w Dr. Guajardo today regarding several medication adjustments, but prefers to keep pre-hospital meds #Sinus bradycardia: HR 30-40 sinus david on tele (personally interpreted), stable w/o hypotension s/p fluid resuscitation -patient's condition TBD and unclear whether he would actually benefit from PPM , as his mental status remains suppressed despite HR 60-70 w/ normal BP on exam , so unlikely to be 2/2 bradycardia #Deconditioning: PT/OT recommending SNF, family agreeable, ongoing auth issues #Rectal adenocarcinoma: New problem to this provider, further w/u indicated. Oupt CT abd/pelvis without mets -d/w Dr. Frances, he advises that patient needs MRI for formal staging of rectal area, and it remains unclear whether iliac stent is MRI-compatible -he recommends ongoing attempt to confirm whether it is (tomorrow), and, if it is not MRI-compatible, then he would recommend inpatient bowel prep and GI consult for rectal US staging -given his sluggish recovery of mental status and no prior head imaging, will get CT head #Hypotension: Resolved with IVF. Dustin stim normal. #Hypothyroidism: TSH low but T4/T3 wnl. Continue replacement #H/o CAD: s/p stent last years. On plavix, no statin #H/o PAD: s/p iliac stent. Diet: regular Code: DNR VTE ppx: LMWH Dispo: Remain inpatient for persistently suppressed mental status, ADD 01/26 to SNF Subjective: patient fatigued Objective: Vital Signs Temp Pulse Resp BP Pulse Ox 36.8 C 53 L 20 99/60 L 93 01/25/18 15:17 01/25/18 15:17 01/25/18 15:17 01/25/18 15:17 01/25/18 15:17 Microbiology 01/21/18 23:31 Urine Culture - Final Unspecified Escherichia Coli Staphylococcus Simulans Laboratory Results 01/25/18 03:34 01/25/18 03:34 01/24/18 01/25/18 01/26/18 05:59 05:59 05:59 Intake Total 2275 2150 Output Total 2150 3200 725 Balance 125 -1050 -725 - Physical Exam Constitutional: no apparent distress, not in pain, chronically ill appearing, No uncomfortable Cardiovascular: bradycardia, No systolic murmur, No irregularly irregular, No tachycardia, No edema Respiratory: no respiratory distress, no rales or rhonchi, clear to auscultation Gastrointestinal: normoactive bowel sounds, soft, non-tender abdomen, no palpable masses, No distension Genitourinary: hernandez in urethra Psychiatric: not anxious, flat affect, poor memory, No agitated ICD10 Worksheet Patient Problems: Problems Problem Status Onset Rectal adenocarcinoma Acute
[2018-01-25] MEDS: DIVALPROEX ER 500 MG TAB PO SCH (20:23)
[2018-01-25] MEDS: ATORVASTATIN CALCIUM 40 MG TAB PO SCH (20:23)
[2018-01-25] MEDS: ARIPiprazole 5 MG TAB PO SCH (20:23)
[2018-01-25] MEDS: MELATONIN 3 MG TAB PO SCH (20:23)
[2018-01-26] MEDS: CEPHALEXIN 500 MG CAP PO SCH (06:33)
[2018-01-26] MEDS: LEVOTHYROXINE 75 MCG TAB PO SCH (06:34)
[2018-01-26] MEDS: oxyCODONE IR 5 MG TAB PO PRN ×3 (08:35→20:12)
[2018-01-26] MEDS: CLOPIDOGREL BISULFATE 75 MG TAB PO SCH (08:35)
[2018-01-26] MEDS: ENOXAPARIN 40 MG/0.4 ML SYR SC SCH (08:37)
--- NOTE | 2018-01-26 10:44 | HOSPPROG ---
Hospitalist Progress Note Assessment/Plan: Assessment: 77 yo M with recent dx of rectal adenocarcinoma presents with weakness and confusion. #Acute toxic encephalopathy: possibly 2/2 UTI -CT head with and without con today -atbx as below -cont melatonin to improve sleep cycle #CAUTI: Unclear if true UTI vs colonization, afebrile, nl wbc's. UCx is polymicrobial with E coli and Staph simulans (latter is resistant to cefazolin) . -reviewed with ID, will change to Doxycycline, day 08/28 -exchanged hernandez, prior hernandez had been changed 1 week [employer] #Depression: Discussed with Dr. Galvan -cont radha, d/c abilinadja per psych -obtain records from [facility] including MRI and CT, though repeat head CT planned for today -consider neurology consult if not improving #Sinus bradycardia: stable w/o hypotension s/p fluid resuscitation. mental status remains suppressed despite HR 60-70 w/ normal BP on exam, so unlikely to be 2/2 bradycardia -cont telemetry monitoring #Deconditioning: PT/OT recommending SNF, family agreeable, ongoing auth issues #Rectal adenocarcinoma: Has not been staged, unable to get MRI due to iliac stent. Discussed with Dr. Jorgensen -GI consulted for EUS for staging purposes, Dr. Mae to coordinate with Dr. Hawthorne to do EUS prior to dc -CT head with and without contrast today -oncology following #Stool incontinence - likely related to above. -rule out c diff and if negative, prn imodium ok #Retroperitoneal mass - unclear if this represents metastatic focus -Onc reviewing [facility] CT scans, may warrant repeat CT here #Hypotension: Resolved with IVF. Dustin stim normal. #Hypothyroidism: TSH low but T4/T3 wnl. Continue replacement #H/o CAD: s/p stent last years. On plavix, no statin #H/o PAD: s/p iliac stent. Diet: regular Code: DNR VTE ppx: LMWH Dispo: Cont inpt, will pursue EUS here, likely to SNF when stable Subjective: Pt's mental status waxes and wanes, awake and conversant with me, sounds like some improvement overall, but still intermittently somnolent. No fevers/chills. No CP or SOB. C/O stool oozing, incontinent of stool. Some rectal pain. Objective: Vital Signs Temp Pulse Resp BP Pulse Ox 36.6 C 60 12 131/66 H 92 01/26/18 08:20 01/26/18 08:20 01/26/18 08:20 01/26/18 08:20 01/26/18 08:20 Microbiology 01/21/18 23:31 Urine Culture - Final Unspecified Escherichia Coli Staphylococcus Simulans Laboratory Results 01/25/18 03:34 01/25/18 03:34 01/25/18 01/26/18 01/27/18 05:59 05:59 05:59 Intake Total 2150 Output Total 3200 725 Balance -1050 -725 - Physical Exam Constitutional: no apparent distress Eyes: PERRL Ears, Nose, Mouth, Throat: moist mucous membranes Cardiovascular: regular rate and rhythym Respiratory: no respiratory distress, clear to auscultation Gastrointestinal: normoactive bowel sounds, soft, non-tender abdomen Skin: warm Musculoskeletal: generalized weakness Psychiatric: encephalopathic ICD10 Worksheet Patient Problems: Problems Problem Status Onset Rectal adenocarcinoma Acute
--- NOTE | 2018-01-26 11:13 | SOAPPROG ---
[facility] Progress Note Assessment/Plan: Assessment: 1) Newly diagnosed rectal cancer (unstaged) 2) Nonspecific Right retroperitoneal mass seen on initial [facility] staging CT 3) Depression 4) Weakness / Deconditioning Plan: I met with patient and this morning. St this point it does not look like an MRI will be possible due to possible non MRI compatible iliac stent. GI has been consulted for EUS staging. Hopefully this can be done in the next few days. I think that getting this done prior to discharge will be important as there has been a significant delay in getting staging done as an outpatient mainly due to patient's fairly severe depression. I will order a CT of the pelvis to better evaluate the incidental retroperitoneal "mass" seen on his outpatient CT. I suspect this is benign. Plan d/c to rehab once the above has been completed. Psychiatry is involved, and patient's mood has improved. Patient and 's questions answered. Case d/w Dr. Santana and Dr. Galvan. 01/26/18 11:07 01/26/18 11:08 Subjective: Meeting with Dr. Galvan. at bedside Objective: Vital Signs Temp Pulse Resp BP Pulse Ox 36.6 C 60 12 131/66 H 92 01/26/18 08:20 01/26/18 08:20 01/26/18 08:20 01/26/18 08:20 01/26/18 08:20 Microbiology 01/21/18 23:31 Urine Culture - Final Unspecified Escherichia Coli Staphylococcus Simulans Laboratory Results 01/25/18 03:34 01/25/18 03:34 01/25/18 01/26/18 01/27/18 05:59 05:59 05:59 Intake Total 2150 Output Total 8800 725 Balance -1050 -725 - Time Spent With Patient Time Spent With Patient: 25 minutes Physical Exam - Physical Exam General Appearance: alert, no apparent distress EENT: PERRL/EOMI Abdomen: non-tender, soft Skin: normal color Neuro/Psych: alert, other (Flat affect. Alert and oriented. Answeres questions appropriately) ICD10 Worksheet Patient Problems: Problems Problem Status Onset Rectal adenocarcinoma Acute
[2018-01-26] MEDS: DOXYCYCLINE HYCLATE 100 MG CAP/TAB PO SCH ×2 (12:15→20:12)
[2018-01-26] MEDS ORDERED: LOPERAMIDE HCL 2 MG CAP PO PRN (12:25)
--- NOTE | 2018-01-26 12:50 | ASMTCMCOM ---
CM Note CM Note Notes: Spoke with and pt in the room as well as physician. Pt has had quick decline since cancer diagnosis and has been unable to obtain staging of the rectal cancer. Pt will stay inpatient until Endoscopic ultrasound performed by GI to complete staging which will further inform plan of care. Pt's cognition improving with antibiotic treatment and therapies are recommending SNF. [facility] pt and [facility] is 's first choice. Pt likely to discharge Fri or after endoscopy. CM also provided with [facility] about [facility] and gave contact number for her to call dialysis social worker there to determine pt's eligibility to [facility] through [facility]. also wanting to find more local PCP, as pt's current PCP is in [place]. decided to wait on this til after endoscopy as care goals will be clearer at that time. D/C Plan: [facility] Date Signed: 01/26/2018 12:50 PM Electronically Signed By:Archana Barragan
[2018-01-26] MEDS ORDERED: IOPAMIDOL (ISOVUE-300) 100 ML BTL ONE (12:59)
--- NOTE | 2018-01-26 14:11 | SOAPPROG ---
SORAEANN Progress Note Assessment/Plan: 01/26/18 12:52 Patient evaluated this AM, and also later joined in on interview. Reports not feeling depressed, but does feel hopeful. Thinks he was definitely more depressed for a period of time with passive SI last year following cardiac surgery and complications, does not recall intentionally being noncompliant with medications (depakote) at that time, thinks perhaps was forgetful. When differences explained, patient does feel depression not presently an issue , but rather apathy and this has been the case for several months. Does not recall having any VH last night. reports +VH over past month at least, primarily at night, and during initial couple of inpatient hosp days recently. Pt feeling better overall since admission following hydration and ABXs. Is participating in PT, OT and has had ST. ST notes signif improvement in O-log and SLUMS over past couple of days. 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 states pt had evaluation at [facility] last year sometime, was diagnosed with mild NAUN and CPAP recommended but they did not pursue this b/c pt stated he did not want to wear it. Recalls they told him something about oxygen at 65-70%. Explained importance of NAUN treatment, and untreated NAUN contributing to depression, cognitive impairments, medical complications. Agreed to sign WENDY for records/test results. Office closed today. Perhaps can have some treatment while in hospital. In discussion with hospitalist Brianne Santana, pt will remain inpatient at [facility] for further oncology work-up with concerns this would be difficult to complete in a timely manner as outpatient cecilia once in SNF. In this case, and patient would be willing to try medication for arousal. Also talked with PT after interviewing patient. PT volunteered noting patient with somewhat Parkinsonian gait, including difficulty initiating movements. MSE: resting in bed, in hosp gowns, eric matta, good eye contact when alert, low normal vol, slightly hoarse voice, mood "hopeful", affect appropriate to content although somewhat constricted, denied any AH/VH or any SI. does not recall having any VH last night. thoughts goal-directed, linear. no delusions or paranoia. oriented to 01/26/18 BC and situation. maintaining arousal still problematic, noted easily drifting off to sleep when not continuously stimulated. maintained engagement in interview with frequent light touches and calling name during conversation. very mild intention tremor R>L on FNF. otherwise no resting tremor noted during interview. CLOCK DRAWING TASK: Notable for impaired placement of numbers, and hands, but able to recognize this. IMPRESSION: improved encephalopathy from admission. no depression. psychiatrically stable. DX: Encephalopathy, resolved Neurocognitive disorder, unspecified-multifactorial. Bipolar d/o, by history. REC: 1. Discontinue Abilify 2.5mg hs. Pt consistently reporting no depression on interview 01/24 and today. Also PT noted Parkinsonian-like gait. This would eliminate Abilify as possible factor. Also outpt psychiatrist reported plan to use Abilify short-term then d/c once depression improved. Continue Depakote 1500mg qhs. Has been stable on VPA for years although with a history of behaviors suggesting one prior manic episode, but not clearly a classic manic episode. Of note, FTD symptoms can overlap with BMD sxs. No indication presently for any medication change, however. 2. Given notable deconditioning, ensure consistently getting pt out of bed to ambulate halls, 4x daily + daily with PT (5x/d total), as per PT recommendations. He expresses motivation to engage in rehab therapies. 3. [facility]. see above. May have untreated Obstructive Sleep Apnea contributing to daytime sleepiness and impaired maintaining arousal. Pt and report testing done within past year and + results. Recalls they told him something about oxygen at 65-70%. d/w hospitalist who will order ABG and ensure not hypercarbic. 4. Given his hx of fluctuating arousal and difficulty maintaining awake/alert state, and report of visual hallucinations at least over past month, concerns present for r/o Lewy Body Dementia on differential. Note pt also with history of fall in early Dec 2017, hitting head on fireplace hearth but without LOC. ?related to autonomic instability. Also with bradycardia and hypotension noted during admission. Was referred to neurologist/neurobehaviorist in [address] [facility] [address] Keny Barrera by outpt psychiatrist for cognitive evaluation, and was reported to have prominent frontal lobe atrophy on brain imaging at that time, with concern for FTD, but pt did not f/u with further testing. Noting he has been on Abilify 2.5mg since about 04/2017, although less likely to cause EPS, this is still a possible s/e, and antipsychotics would not be indicated if with LBD, which is another reason to d/c Abilify. Discussed with hospitalist who will consult Neurology for further assessment and recommendations. Also would ask neuro to comment on any pharmacologic recommendations to improve arousal, such as provigil or other. Physical weakness seems by hx more related to deconditioning, initially related to depression but then more lack of motivation and apathy over last few months. 5. Pt more hopeful about his CA dx and treatment options. His d/c to SNF for rehab will be postponed until further CA workup done while inpatient. He reports desire to proceed with workup for staging. Paraneoplastic panel pending. Objective: Vital Signs Temp Pulse Resp BP Pulse Ox 36.6 C 60 12 131/66 H 92 01/26/18 08:20 01/26/18 08:20 01/26/18 08:20 01/26/18 08:20 01/26/18 08:20 Microbiology 01/21/18 23:31 Urine Culture - Final Unspecified Escherichia Coli Staphylococcus Simulans Laboratory Results 01/25/18 03:34 01/25/18 03:34 01/25/18 01/26/18 01/27/18 05:59 05:59 05:59 Intake Total 2150 Output Total 5260 725 Balance -1050 -725 - Time Spent With Patient Time Spent With Patient: 60min - Pending Discharge Pending Discharge Within 24 Hours: No Pending Discharge Within 48 Hours: No ICD10 Worksheet Patient Problems: Problems Problem Status Onset Rectal adenocarcinoma Acute
--- NOTE | 2018-01-26 14:12 | GCON ---
DATE OF CONSULTATION: 01/26/2018 CONSULTING PHYSICIAN: Skyler Jorgensen MD. REASON FOR CONSULTATION: Rectal cancer. CHIEF COMPLAINT: Rectal cancer/blood in stools. HISTORY OF PRESENT ILLNESS: The patient is a 77-year-old male who was admitted to [facility] on 01/21/2018, with complaints of failure to thrive , increased weakness and confusion. He was found to have urosepsis and was treated with antibiotics with resolvment of his symptoms. Enoc has had complaints of blood in his stool, which occurred earlier this summer. He denies any exacerbating or alleviating factor to his symptoms. He had a colonoscopy on 12/19/2017, by my partner, Dr. Ortez, and was found to have a 3 x 2.5 cm mass in his distal rectum. Biopsies were taken and were consistent with moderately differentiated adenocarcinoma. I am being consulted by Dr. Jorgensen to evaluate Enoc in consultation regarding his rectal mass and for prestaging treatment. PAST MEDICAL HISTORY: 1. Coronary artery disease. 2. Peripheral vascular disease. 3. CVA. 4. Depression. 5. Hypercholesterolemia. 6. Hypothyroidism. PAST SURGICAL HISTORY: 1. Coronary stent. 2. Vascular stent. 3. Knee surgery. 4. Cataracts. ALLERGIES: NKDA. MEDICATIONS: Abilify, atorvastatin, Plavix, Depakote, Napanoch, levothyroxine, nitroglycerin. FAMILY HISTORY: No history of colon cancer. SOCIAL HISTORY: Former smoker. No significant tobacco use. REVIEW OF SYSTEMS: A 14-point comprehensive review of systems was asked. Pertinent positives and negatives per HPI. PHYSICAL EXAMINATION: VITALS: Blood pressure 131/66, pulse 60, respirations 12 , temperature 36.6. GENERAL: Awake, alert, oriented x3. No distress. HEENT: Anicteric. Moist. NECK: No JVD. CARDIOVASCULAR: Regular rate and rhythm. Positive S1, S2. No gallops appreciated. LUNGS: Clear to auscultation bilaterally. No wheezes, rales or rhonchi. ABDOMEN: Soft, nontender, nondistended. Positive bowel sounds. No guarding. No rebound. EXTREMITIES: No clubbing, cyanosis or edema. NEUROLOGIC: 2 through 12 grossly intact. PSYCH: Flat. : Positive Goodwin catheter. SKIN: No rash. Non icteric. LYMPH: No lymphadenopathy. MUSCULOSKELETAL: No obvious joint effusions. BLOOD WORK: Hemoglobin 10.8. Sodium 138, potassium 4, creatinine 0.6. ASSESSMENT AND PLAN: 1. Rectal mass- adenocarcinoma on biopsy. He cannot obtain an MRI due to his iliac stents. At this time, recommend to proceed with endoscopic ultrasound for staging. The risks, benefits, and alternatives of the procedure discussed in great detail with the patient. The risk of infection, bleeding, perforation , and sedation were discussed. Due to his coronary artery disease and significant peripheral vascular disease, he is at increased risk of sedation. Will consult Anesthesiology. 2. Peripheral vascular disease. 3. Coronary artery disease. 4. Hyperlipidemia. 5. Hypothyroidism. Thank you very much for this consultation. /[id number]/MODL MTDD
[2018-01-26] MEDS ORDERED: LR 1,000 ML IV ONE (16:34)
--- NOTE | 2018-01-26 16:51 | PDANEPAE ---
ANE History of Present Illness Rectal CA ANE Past Medical History - Cardiovascular History Hx Hypertension: Yes Hx Coronary Artery / Peripheral Vascular Disease: Yes Cardiovascular History Comment: Stents X2 - Pulmonary History Hx Oxygen in Use at Home: No Hx Sleep Apnea: No Sleep Apnea Screening Result - Last Documented: Positive - Endocrine History Hx Diabetes: No - Chronic Pain History Chronic Pain: Yes ANE Review of Systems Review of Systems: ANE Patient History - Allergies Allergies/Adverse Reactions: No Known Allergies Allergy (Verified 01/22/18 11:38) - Home Medications Home medications: home medication list seen and reviewed Home Medications: ARIPiprazole [Abilify 5 mg (*)] 2.5 mg PO HS 01/21/18 [Last Taken 01/21/18 17:00 ] Atorvastatin Calcium [Lipitor 40 mg (*)] 40 mg PO HS 01/21/18 [Last Taken 17:00] Clopidogrel Bisulfate [Plavix (*)] 75 mg PO DAILY 01/21/18 [Last Taken 01/21/18] Divalproex ER [Depakote ER 500 MG (*)] 1,500 mg PO HS 01/21/18 [Last Taken 01/21 17:00] Hydrocodone/Acetaminophen [[place] 5/325 (*)] 1 tab PO Q4H PRN 01/21/18 [Last Taken 01/20/18] Levothyroxine [Synthroid 75 mcg (*)] 75 mcg PO DAILY06 01/21/18 [Last Taken 07/06] Nitroglycerin [Nitrostat 0.4 mg (*)] 0.4 mg SL Q5M PRN 01/21/18 [Last Taken Unknown] - NPO status NPO Since - Liquids (Date): 01/26/18 NPO Since - Liquids (Time): 09:00 NPO Since - Solids (Date): 01/26/18 NPO Since - Solids (Time): 09:00 - Smoking Hx Smoking Status: Former smoker - Alcohol Use Alcohol Use: Rarely ANE Labs/Vital Signs - Labs Result Diagrams: 01/25/18 03:34 01/25/18 03:34 - Vital Signs Blood Pressure: 119/58 Heart Rate: 60 Respiratory Rate: 14 O2 Sat (%): 91 Height: 165.1 cm Weight: 76.204 kg ANE Physical Exam - Airway Neck exam: FROM Mallampati Score: Class 2 Mouth exam: normal dental/mouth exam - Pulmonary Pulmonary: no respiratory distress - Cardiovascular Cardiovascular: regular rate and rhythym - ASA Status ASA Status: III ANE Anesthesia Plan Anesthesia Plan: MAC (vs IV GA)
[2018-01-26] MEDS ORDERED: PROPOFOL 200 MG/20 ML VIAL ONE (16:55)
[2018-01-26] MEDS ORDERED: PROPOFOL/EMULSION 500 MG/50 ML BOTTLE IV ONE (16:55)
[2018-01-26] MEDS ORDERED: ONDANSETRON 4 MG/2 ML VIAL IVP PRN (17:01)
[2018-01-26] MEDS ORDERED: fentaNYL 100 MCG/2 ML INJ IVP PRN (17:01)
[2018-01-26] MEDS ORDERED: NALOXONE HCL 0.4 MG/ML INJ IVP PRN (17:01)
--- NOTE | 2018-01-26 17:27 | GIREPORT ---
[facility] - Endoscopy Department Patient Name: Enoc Ontiveros Procedure Date: 01/26/2018 5:10 PM Patient Type: Inpatient Attending MD/ ER Physician: Quintin Hawthorne MD Procedure: Lower EUS Indications: Pre-treatment staging for anorectal carcinoma Patient Profile: 77 year old male presents for staging of a rectal cancer. Providers: Quintin Hawthorne MD Medicines: Monitored Anesthesia Care Complications: No immediate complications. Estimated blood loss: None. Description of Procedure: After obtaining informed consent, the endoscope was passed under direct vision. Throughout the procedure, the patient's blood pressure, pulse, and oxygen saturations were monitored continuously. The Colonoscope with irrigation channel was introduced through the anus and advanced to the sigmoid colon for ultrasound. The Endosonoscope was introduced through the anus and advanced to the sigmoid colon for ultrasound. The lower EUS wa s accomplished without difficulty. The patient tolerated the procedure we ll. Findings: Endoscopic Finding : A fungating and infiltrative medium-sized mass was found in the distal rectum. The mass was partially circumferential (involving one-half of t he lumen circumference). The mass measured three cm in length and was loca lana about 3.5cms from the anal verge. Endosonographic Finding : No lymph nodes were seen in the perirectal region and in the sigmoid re gion. A hypoechoic mass was found in the rectum. The mass was encountered at 3.5 cm (from the anal verge). The mass was non-circumferential and located predominantly at the left rectal wall. The endosonographic borders were poorly-defined. The mass measured 15 mm (in maximum thickness). There w as sonographic evidence suggesting breakthrough of the muscularis propria with invasion into the perirectal fat (Layer 5, manifested by an irregular o uter surface). Estimated Blood Loss: Estimated blood loss: none. Post Op Diagnosis: - Tumor in the distal rectum. - No lymph nodes were seen in the perirectal region and in the sigmoid region during endosonographic examination. - Rectal mass was visualized endosonographically. This was staged uT3 u N0. - No specimens collected. Recommendation: - Return patient to [facility] for ongoing care. - Advance diet as tolerated. - Continue present medications. - Thank you for allowing me to participate in the care of your patient. Attending Participation: I personally performed the entire procedure. Quintin Hawthorne MD Quintin Hawthorne MD 01/26/2018 5:26:50 PM This report has been signed electronicallyQuintin Hawthorne MD Number of Addenda: 0 Note Initiated On: 01/26/2018 5:10 PM Total Procedure Duration Time 0 hours 2 minutes 30 seconds [email or web address]}
--- NOTE | 2018-01-26 17:34 | POSTANESTH ---
Post Anesthetic Evaluation Cardiovascular Status: Similar to Pre-Op Cond Respiratory Status: Similar to Pre-op Cond. Level of Consciousness/Mental Status: Alert and Oriented Pain Control: Adequate, Prn Tx Ordered Nausea/Vomiting Control: Adequate, Prn Tx Ordered Complications Possibly Related to Anesthesia: None Noted
[2018-01-26] MEDS: DIVALPROEX ER 500 MG TAB PO SCH (20:12)
[2018-01-26] MEDS: ATORVASTATIN CALCIUM 40 MG TAB PO SCH (20:12)
[2018-01-26] MEDS: MELATONIN 3 MG TAB PO SCH (20:13)
--- NOTE | 2018-01-26 22:52 | NEUROPROG ---
Assessment: [id number] - Neurology Consult: - CC: Loss of Motivation - HPI: Patient admitted to [facility] in January 2018 for failure to thrive. Pt with past history of depression (1976, 1990s had severe spells per patient) reported he has lost motivation to get out of bed. He had a cardiac issue in 2016 and then in 2018 was diagnosed with rectal adenocarcinoma. Since that time he and his note decreasing desire to get out of bed or move around. He feels this is likely from his known clinical depression. Neurologic exam on 01/26/18 showed bilateral postural tremor in arms likely from malnutrition and lack of muscle activity. This is also likely related to his hypotension in some form. I had a long discussion with the patient and his . We all agreed that he needed to work with mental health and develop a plan for him to regain the motivation to get out of bed, exercise, and live his life. I do not think he has any significant neurodegenerative disease (Lewy body dementia, etc). However, as there is no disease modifying therapy for neurodegenerative disorders such as frontotemporal dementia, Lewy Body Dementia, or Alzheimers disease treatment would be the same (symptomatic therapy). It was reported the patient could not have a brain MRI due to a possible stent in the leg which was not MRI compatible as well. - PMHx: rectal adenocarcinoma, CAD w/stents x 2, psychiatric history (severe depression in past- had 70 day stay at [facility] in [place]), PVD w/stent - SHx: former tobacco user FHx: NC - ROS: Pt denied acute fever, total vision loss, active severe chest pain, respiratory failure, total body severe rash, total bowel/bladder incontinence, psychosis, active seizures, or active bleeding - O: VS reviewed General: Alert Eyes: Fundoscopic exam not able to visualize optic disks CV: Heart RRR, no murmur, no carotid bruit Lungs: Clear to auscultation bilaterally, no rhonchi or rales Neuro: - Mental: . Oriented x person/place/date . concentration appears normal . speech fluency/comprehension normal . memory appears normal . fund of knowledge appear intact - Cranial Nerves: . II: PERRL, VFFTC . III/IV/: EOMI, no nystagmus, normal smooth pursuits, no Ptosis . V: facial sensation intact to LT . VII: face symmetric to eye closure and smile . VIII: hearing intact to conversation . IX/X: uvula raises symmetrically . XI: SCM 5/5 B/L strength . XII: tongue protrudes midline w/nl strength - Motor: . Tone: patient cannot relax arms and has tremor in arms with passive movement . 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 Depression: Patient admitted to [facility] in January 2018 for failure to thrive. Pt with past history of depression (1976, 1990s had severe spells per patient) reported he has lost motivation to get out of bed. He had a cardiac issue in 2016 and then in 2018 was diagnosed with rectal adenocarcinoma. Since that time he and his note decreasing desire to get out of bed or move around. He feels this is likely from his known clinical depression. Neurologic exam on 01/26/18 showed bilateral postural tremor in arms likely from malnutrition and lack of muscle activity. This is also likely related to his hypotension in some form. I had a long discussion with the patient and his . We all agreed that he needed to work with mental health and develop a plan for him to regain the motivation to get out of bed, exercise, and live his life. I do not think he has any significant neurodegenerative disease (Lewy body dementia, etc) . However, as there is no disease modifying therapy for neurodegenerative disorders such as frontotemporal dementia, Lewy Body Dementia, or Alzheimers disease treatment would be the same (symptomatic therapy). It was reported the patient could not have a brain MRI due to a possible stent in the leg which was not MRI compatible as well. - 2. Rectal Adenocarcinoma - Plan: - Agree with plan to work with mental health and PCM to focus on symptomatic treatment of symptoms related to his loss of motivation (appears most consistent with depression), I do not have any additional medication recommendations but I did have a deep conversation with the patient and his counseling them on the importance of improving his motivation - F/U in neurology clinic 1-4 weeks after hospital discharge Objective: Vital Signs Temp Pulse Resp BP Pulse Ox 36.3 C 53 L 11 L 144/69 H 97 01/26/18 19:28 01/26/18 19:28 01/26/18 19:28 01/26/18 19:28 01/26/18 19:28 Laboratory Results 01/25/18 03:34 01/25/18 03:34 01/25/18 01/26/18 01/27/18 05:59 05:59 05:59 Intake Total 2150 300 Output Total 3200 725 1350 Balance -1050 -728 -1051 Allergies/Adverse Reactions: No Known Allergies Allergy (Verified 01/22/18 11:38)
[2018-01-27] MEDS: LEVOTHYROXINE 75 MCG TAB PO SCH (05:30)
--- NOTE | 2018-01-27 09:54 | NEUROPROG ---
Assessment: [id number] - Neurology Consult: - CC: F/U for Loss of Motivation - Narrative Summary: Patient admitted to [facility] in January 2018 for failure to thrive. Pt with past history of depression (1976, 1990s had severe spells per patient) reported he has lost motivation to get out of bed. He had a cardiac issue in 2017 and then in 2018 was diagnosed with rectal adenocarcinoma. Since that time he and his note decreasing desire to get out of bed or move around. He feels this is likely from his known clinical depression. Neurologic exam on 01/26/18 showed bilateral postural tremor in arms likely from malnutrition and lack of muscle activity. This is also likely related to his hypotension in some form. I had a long discussion with the patient and his . We all agreed that he needed to work with mental health and develop a plan for him to regain the motivation to get out of bed, exercise, and live his life. I do not think he has any significant neurodegenerative disease (Lewy body dementia, etc). However, as there is no disease modifying therapy for neurodegenerative disorders such as frontotemporal dementia, Lewy Body Dementia, or Alzheimers disease treatment would be the same (symptomatic therapy). It was reported the patient could not have a brain MRI due to a possible stent in the leg which was not MRI compatible as well. - HPI: F/U on 01/27/18. Pt reported he felt well this morning. No new complaints. He feels motivated to work on a treatment plan. He denied any new neurologic issues. Neurology will sign off. - PMHx: rectal adenocarcinoma, CAD w/stents x 2, psychiatric history (severe depression in past- had 70 day stay at [facility] in [place]), PVD w/stent - SHx: former tobacco user FHx: NC - ROS: Pt denied acute fever, total vision loss, active severe chest pain, respiratory failure, total body severe rash, total bowel/bladder incontinence, psychosis, active seizures, or active bleeding - Labs: 01/25/18- CBC Hct 31.7L, Chem Anion gap 6L Cr 0.6L Ca 8.3L - Rads: 01/26/18- Head CT wwo: generalized atrophy and mild CMVD, no mets seen (I Personally visualized the images on 01/26/18) - Assessment: 1. Depression: Patient admitted to [facility] in January 2018 for failure to thrive. Pt with past history of depression (1976, 1990s had severe spells per patient) reported he has lost motivation to get out of bed. He had a cardiac issue in 2016 and then in 2018 was diagnosed with rectal adenocarcinoma. Since that time he and his note decreasing desire to get out of bed or move around. He feels this is likely from his known clinical depression. Neurologic exam on 01/26/18 showed bilateral postural tremor in arms likely from malnutrition and lack of muscle activity. This is also likely related to his hypotension in some form. I had a long discussion with the patient and his . We all agreed that he needed to work with mental health and develop a plan for him to regain the motivation to get out of bed, exercise, and live his life. I do not think he has any significant neurodegenerative disease (Lewy body dementia, etc) . However, as there is no disease modifying therapy for neurodegenerative disorders such as frontotemporal dementia, Lewy Body Dementia, or Alzheimers disease treatment would be the same (symptomatic therapy). It was reported the patient could not have a brain MRI due to a possible stent in the leg which was not MRI compatible as well. - 2. Rectal Adenocarcinoma - Plan: - Agree with plan to work with mental health and PCM to focus on symptomatic treatment of symptoms related to his loss of motivation (appears most consistent with depression), I do not have any additional medication recommendations but I did have a deep conversation with the patient and his counseling them on the importance of improving his motivation - No further inpatient neurologic w/u needed, neurology will sign off - F/U in neurology clinic 1-4 weeks after hospital discharge Objective: Vital Signs Temp Pulse Resp BP Pulse Ox 36.5 C 42 L 18 104/54 L 98 01/27/18 08:00 01/27/18 08:00 01/27/18 08:00 01/27/18 08:00 01/27/18 08:00 Microbiology 01/21/18 18:30 Blood Culture - Final Blood 01/21/18 18:40 Blood Culture - Final Blood Laboratory Results 01/25/18 03:34 01/25/18 03:34 01/26/18 01/27/18 01/28/18 05:59 05:59 05:59 Intake Total 450 Output Total 626 2300 Balance -785 -1850 Allergies/Adverse Reactions: No Known Allergies Allergy (Verified 01/22/18 11:38)
[2018-01-27] MEDS: CLOPIDOGREL BISULFATE 75 MG TAB PO SCH (09:55)
[2018-01-27] MEDS: ENOXAPARIN 40 MG/0.4 ML SYR SC SCH (09:55)
[2018-01-27] MEDS: DOXYCYCLINE HYCLATE 100 MG CAP/TAB PO SCH (09:56)
[2018-01-27] MEDS: oxyCODONE IR 5 MG TAB PO PRN ×2 (10:03→15:51)
[2018-01-27 12:20] VITALS: BP 97/49
--- NOTE | 2018-01-27 13:06 | PDIAF ---
- Diagnosis Diagnosis: rectal cancer, weakness Code Status: Do Not Resuscitate - Medication Management Discharge Medications: Medications to Continue on Transfer Atorvastatin Calcium [Lipitor 40 mg (*)] 40 mg PO HS 01/21/18 [Last Taken 17:00] Clopidogrel Bisulfate [Plavix (*)] 75 mg PO DAILY 01/21/18 [Last Taken 01/21/18] Divalproex ER [Depakote ER 500 MG (*)] 1,500 mg PO HS 01/21/18 [Last Taken 01/21 17:00] Hydrocodone/Acetaminophen [Locust 5/325 (*)] 1 tab PO Q4H PRN 01/21/18 [Last Taken 01/20/18] Levothyroxine [Synthroid 75 mcg (*)] 75 mcg PO DAILY06 01/21/18 [Last Taken 07/06] Nitroglycerin [Nitrostat 0.4 mg (*)] 0.4 mg SL Q5M PRN 01/21/18 [Last Taken Unknown] Doxycycline Hyclate [Vibramycin 100 MG (*)] 100 mg PO BID #12 capsule 01/27/18 [ Last Taken Unknown] Discharge Medications: Refer to the Discharge Home Medication list for PRN reason. - Orders Services needed: Registered Nurse, Physical Therapy, Occupational Therapy Diet Recommendation: no restrictions on diet Diet Texture: Regular Texture Diet, Thin Liquids, Meds Whole w/Liquids, Meds Whole in Puree - Follow Up Care Current Providers and Referrals: NONE *PRIMARY CARE P,. [Primary Care Provider] - Skyler Romeo MD [Medical Doctor] -
--- NOTE | 2018-01-27 15:09 | SOAPPROG ---
ROSIB[facility] Progress Note Assessment/Plan: Assessment: 1) Newly diagnosed rectal cancer T3NO 2) Nonspecific Cystic Right retroperitoneal mass 3) Depression 4) Weakness / Deconditioning Plan: Patient's EUS reveals T3N0 disease. Results reviewed with patient, , and son. I recommend intial neoadjuvant treatment with radiation and Xeloda. Regimen reviewed with them.He would proceed with surgery after neoadjuvant therapy completed. He will follow up with Dr. Romeo as an outpatient to finalize the treatment plan. Plan d/c to rehab today. Treatment will begin as an outpatient. I will notify Dr. Romeo of his discharge. Psychiatry is involved, and patient's mood has improved. We discussed the incidental finding of his Right LQ cystic mass. Differential diagnosis remains broad, and a second malignancy has not been entirely excluded , but is unlikely. I recommend a repeat CT pelvis in [address] Romeo will order this as an outpatient. Patient and family questions answered. Subjective: Had EUS and CT pelvis yesterday. Will be d/c to rehab today. Objective: Vital Signs Temp Pulse Resp BP Pulse Ox 36.6 C 48 L 18 97/49 L 96 01/27/18 12:00 01/27/18 12:00 01/27/18 12:00 01/27/18 12:00 01/27/18 12:00 Microbiology 01/21/18 18:30 Blood Culture - Final Blood 01/21/18 18:40 Blood Culture - Final Blood Laboratory Results 01/25/18 03:34 01/25/18 03:34 01/26/18 01/27/18 01/28/18 05:59 05:59 05:59 Intake Total 450 560 Output Total 052 2315 Balance -725 -1520 560 - Time Spent With Patient Time Spent With Patient: 25 minutes Physical Exam - Physical Exam General Appearance: alert, no apparent distress EENT: PERRL/EOMI Abdomen: non-tender, soft Neuro/Psych: oriented x 3, other (Flat affect. ) ICD10 Worksheet Patient Problems: Problems Problem Status Onset Rectal adenocarcinoma Acute
--- NOTE | 2018-01-27 17:18 | ASMTDCNOTE ---
Case Management Discharge Discharge Order Complete? Answers: Yes Transportation Arranged Answers: Other Notes: Van Transport will Pick (Date 01/27/2018 05:00 PM & Time) Faxed Final Orders Answers: Yes Agency/Facility Transfer Answers: Yes Report Printed & Faxed to Receiving Agency Family Notified Answers: Yes Notes: in the room Discharge Comments Notes: Pt to discharge per wishes to [facility]. aware. RN to call report to [facility]. No further CM needs noted at this time. Transport to berry picker machine operator at 1700. CM available should changes occur. Date Signed: 01/27/2018 05:17 PM Electronically Signed By:Archana Barragan
--- NOTE | 2018-01-27 17:20 | ASDISCHSUM ---
Discharge Information Plan Status:SNF Medically Cleared to Leave:01/27/2018 Discharge Date:01/27/2018 05:15 PM D/C Disposition:Senior Care Facility ADT D/C Disposition:Senior Care Facility Projected Discharge Date:01/27/2018 04:00 PM Transportation at D/C:Wheelchair Van Discharge Delay Reason: Follow-Up Date:01/27/2018 04:00 PM Discharge Slot: Final Diagnosis:Rectal Cancer, encephalopathy and possible UTI Placement Information Referral Type:Palliative Care Referral ID:-[id number] Provider Name:[facility] Address 1:[address] Phone Number: Address 2: Fax Number: City:[place] Selection Factors: State:[place] Referral Type:*Prison/SNF Referral ID:[id number] Provider Name:[facility] Address 1:[address] [facility] Address 2: City:[place] Selection Factors: State:[place] Patient Contact Information Contact Name:LAYNE Relationship: Address:[address] [facility] ABDIEL MICHEL Work Phone: City:[place] Alternate Phone: [facility]/Zip Code:[place] [address] Email: Financial Information Financial Class:Medicare Advantage Plans Primary Plan Desc:K[employer] Primary Plan Number:[id number] Secondary Plan Desc: Secondary Plan Number: Assessment Information LACE LACE Length of stay for Answers: 4-6 days current admission Acuity / Level of Answers: Yes Care: Did the patient have an inpatient admission? Comorbidities - select Answers: Any tumor (including all that apply lymphoma or leukemia) Cerebrovascular disease (CVA, TIA, aneurysms, vasc ular dementia) Coronary Artery Disease Opioid dependence / Chronic pain Other Notes: Rectal CA # of Emergency department Answers: 0 visits in the last 6 months Social determinants Answers: Mental health diagnosis (anxiety, depression, pers onality disorders, etc.) Score: 20 Date Signed: 01/27/2018 05:19 PM Electronically Signed By:Archana Barragan [facility] Progress Note CM Note CM Note Notes: Chart reviewed. Met with patient and his . He and his share with me that his status has been declining at home despite working with PT and OT through [facility]. His is tearful and it is my sense that being is caregiver has overwhelming caregiver burden for her. I asked is anyone has discussed palliative care, It was mentioned once but not clearly explored as his cancer diagnosis is still in process of being staged. He needs an MRI but due to him having a stent in his leg at a facility in [place], MRI is delayed until clarification regarding the type of stent can be made. He is also extremely bradycardic which may be an explanation for his severe deciine in physical status and inability to walk at home. Cardiology seeing this PM.CM to follow for needs. Plan: TBD Date Signed: 01/22/2018 04:03 PM Electronically Signed By:Seema Fatima RN [facility] Progress Note CM Note CM Note Notes: Met with patient and his . They were actually having a meet and greet with Ana Maria from [facility] - apparently, patient's home health agency, [facility], had contacted [place] with a referral for palliative care. I concurred that this was also being recommended by [facility]. We then discussed SNF discharge; patient's is not able to meet all of his care needs at home at this time. I sent referrals to [facility] and [facility]. Patient was at [facility] this summer but felt that they did not do much other than PT. Patient will certainly need strong nursing care wherever he goes now. Current CM Discharge plan: SNF w palliative care Date Signed: 01/23/2018 04:03 PM Electronically Signed By:Dina Prabhakar RN [facility] Progress Note CM Note CM Note Notes: sent updated PT/OT/ELEVATOR STARTER to [facility] and [facility]. Met with pt's ; she is quite shaken by his recent medical problems with the most recent being his cancer diagnosis. D/C Plan: SNF Rehab Date Signed: 01/24/2018 03:23 PM Electronically Signed By:Zoila Cervantes [facility] Progress Note CM Note CM Note Notes: Spoke with and pt in the room as well as physician. Pt has had quick decline since cancer diagnosis and has been unable to obtain staging of the rectal cancer. Pt will stay inpatient until Endoscopic ultrasound performed by GI to complete staging which will further inform plan of care. Pt's cognition improving with antibiotic treatment and therapies are recommending SNF. [facility] and [facility] have accepted pt and [facility] is 's first choice. Pt likely to discharge Fri or after endoscopy. CM also provided with information about [facility] and gave contact number for her to call director of social services there to determine pt's eligibility to [facility] through the [facility]. also wanting to find more local PCP, as pt's current PCP is in [place]. decided to wait on this til after endoscopy as care goals will be clearer at that time. D/C Plan: [facility] Date Signed: 01/26/2018 12:50 PM Electronically Signed By:Archana Barragan Case Management Discharge Plan Note Case Management Discharge Discharge Order Complete? Answers: Yes Transportation Arranged Answers: Other Notes: [facility] Transport will Pick (Date 01/27/2018 05:00 PM & Time) Faxed Final Orders Answers: Yes Agency/Facility Transfer Answers: Yes Report Printed & Faxed to Receiving Agency Family Notified Answers: Yes Notes: in the room Discharge Comments Notes: Pt to discharge per wishes to [facility]. aware. RN to call report to [facility]. No further CM needs noted at this time. Transport to steel pickler at 1700. CM available should changes occur. Date Signed: 01/27/2018 05:17 PM Electronically Signed By:Archana Barragan Intervention Information Intervention Type:*Incorrect Registration Date of Service:01/22/2018 09:20 AM Patient Type:Observation Staff Member:ALAYNA Sanders, Marisol Hours: Discipline: Severity: Comment: Intervention Type:*IM-Signed Date of Service:01/27/2018 01:55 PM Patient Type:Inpatient Staff Member:Meghna Huynh Hours: Discipline: Severity: Comment:
--- NOTE | 2018-01-27 19:25 | GDS ---
DISCHARGE DIAGNOSES: 1. Acute encephalopathy, improved. 2. Catheter-associated UTI. 3. Urinary retention with chronic indwelling Goodwin. 4. Depression, stable. 5. Sinus bradycardia, improved. 6. Weakness and deconditioning. 7. Rectal cancer staged by endoscopic ultrasound at T3N0. 8. Stool incontinence, C. diff negative. 9. Right lower quadrant cystic mass. Will need followup imaging in 3 months per oncology. 10. History of coronary artery disease. 11. History of peripheral arterial disease without the presence of iliac stent. CONSULTANTS: 1. Raymundo Loyd MD; oncology. 2. Malgorzata Isaacs NP; cardiology. 3. Venessa Galvan MD; psychiatry. 4. Quintin Hawthorne MD; gastroenterology. PROCEDURES: 1. Endoscopic ultrasound performed January 26, 2018, for staging purposes of his rectal cancer as he was unable to undergo MRI given his iliac stent. HISTORY: For details please see history and physical dated January 21, 2018. In brief, Mr. Ontiveros is a 77-year-old male who is diagnosed with rectal cancer in November 2017 after a reported 50-pound weigh t loss and general decline. He presented to the emergency department with worsening weakness, was ad mitted to the hospital for further management. HOSPITAL COURSE: The patient was admitted to the cardiac telemetry unit. He was hypotensive on arri fred, though this did improve with IV fluid resuscitation. He had a normal cortisol level making adre nal insufficiency an unlikely etiology. He has remained normotensive throughout the rest of the hosp italization. With respect to his rectal cancer, he has not been not been able to undergo staging in the outpatient setting, and given the inability to obtain MRI with the presence of iliac stents gastr oenterology was consulted and he underwent endoscopic ultrasound with staging is T3N0. Oncology also consulted and discuss treatment options. He was incidentally found to have a right lower quadrant c omplex that cystic mass. It is unclear if this is another primary malignancy. It is recommended by oncology to have followup imaging in 3 months and this will be arranged by his primary oncologist. H is encephalopathy improved. Psychiatry consulted to assist with medication management given his depr ession which is stable at time of discharge. He will continue on Depakote but his Abilify is discont inued. In addition, it is noted he may have a history of obstructive sleep apnea and once his perfor judy condition improves, he should follow up with outpatient sleep medicine for arrangements for CPA P. In addition, he was treated with ceftriaxone for possible catheter associated UTI. However, I no te he has been afebrile. He has had no leukocytosis or obvious urinary symptoms. I suspect it is mo re likely he may simply be colonized with polymicrobial urine culture growing both E. coli and Staphy lococci simulans. Nonetheless, he will complete treatment course with doxycycline based on his sensi tivities. His Goodwin catheter was exchanged prior to discharge. PT/OT evaluations [facility]. DISPOSITION: Patient is discharged [facility] in stable condition. FOLLOWUP: 1. Dr. Skyler Romeo, oncology, for further treatment of his rectal cancer and followup imaging of hi s right lower quadrant mass. 2. Primary care as needed. DISCHARGE MEDICATIONS: Please see [facility] for completed outpatient medication list. New medication s on discharge include: Doxycycline 100 mg p.o. b.i.d. #12, no refills. He will continue all other outpatient medications previously prescribed. Abilify is discontinued at discharge based on psychiatry recommendations. He should have outpatient psychiatry followup. /[id number]/MODL
== END 2018-01-27 17:15 | DRG 698 ==
LOC: F1N 17:00 → OBSVTOIN 17:26 → F1N 20:27 → F2W 01-22 17:55
PROVIDERS: ADMIT Internal Medicine; ATTEND Internal Medicine
PROC: 0DJD8ZZ Inspection of Lower Intestinal Tract, Via Natural or Artificial Opening Endoscopic (ICD-10-PCS; principal; 2018-01-26 17:15)
DX: T83.518A Infection and inflammatory reaction due to other urinary catheter, initial encounter (principal); G92 Toxic encephalopathy; C21.8 Malignant neoplasm of overlapping sites of rectum, anus and anal canal; R33.9 Retention of urine, unspecified; R15.9 Full incontinence of feces; E86.0 Dehydration; F32.9 Major depressive disorder, single episode, unspecified; R00.1 Bradycardia, unspecified; I25.10 Atherosclerotic heart disease of native coronary artery without angina pectoris; I73.9 Peripheral vascular disease, unspecified; E03.9 Hypothyroidism, unspecified; E78.00 Pure hypercholesterolemia, unspecified; Z95.5 Presence of coronary angioplasty implant and graft; Z66 Do not resuscitate; Z86.73 Personal history of transient ischemic attack (TIA), and cerebral infarction without residual deficits; Z23 Encounter for immunization
CPT/HCPCS: 82607-90; 83520-90; 84481-90; 86256-90; 92507-GN; 92523-GN; 92610-GN; 97110-GP; 97116-GP; 97162-GP; 97165-GO; 97530-GO; 97530-GP; 97535-GO; G0008; G0009; G8978-GP-CK; G8979-GP-CJ; G8987-GO-CK; G8988-GO-CI; G8989-GO-CJ; G8996-GN-CH; G8997-GN-CH; G8998-GN-CH; G9165-GN-CK; G9166-GN-CI; J0696; J0834; J1100; J1650; J2704; Q9967